=== PATIENT | female | born 1975 | race Two or more races ===

== ENCOUNTER 2016-06-24 19:20 | Inpatient (IN) | payer OTHER ==
[~2016-06-24] VITALS: Ht 160 cm; Wt 74.7 kg
[2016-06-24] MEDS ORDERED: SODIUM CHLORIDE 0.9% 1,000 ML IVB ONE (20:14)
[2016-06-24 20:35] LABS: Basophils # (auto) 0 uL; Basophils % (auto) 0.3 % (0.0-2.0); Eosinophils # (auto) 0 uL; Eosinophils % (auto) 0.3 % (0.0-7.0); Hematocrit 43.5 % (36.0-46.0); Lymphocytes # (auto) 1.2 uL; Lymphocytes % (auto) 12.9 % (10.0-50.0); Mean Corpuscular Hemoglobin 30.1 pg (28.0-32.0); Mean Corpuscular Hgb Conc. 32.2 g/dL (32.0-36.0); Mean Corpuscular Volume 93.6 fL (80.0-100.0); Mean Platelet Volume 7.7 fL (7.4-10.4); Monocytes # (auto) 0.6 uL; Monocytes % (auto) 5.8 % (0.0-12.0); Neutrophils # (auto) 7.7 uL; Neutrophils % (auto) 80.7 % (37.0-80.0); Platelet Count (auto) 289 10^3/uL (140-450); Red Cell Distribution Width 12.8 % (11.6-16.0); White Blood Cell 9.5 10^3/uL (4.4-10.8)
[2016-06-24 20:57] LABS: Albumin 3.7 g/dL (3.4-5.0); BUN/Creatinine Ratio 11.5; Calcium 8.6 mg/dL (8.5-10.1)
[2016-06-24 21:00] LABS: Bilirubin, Total 0.8 mg/dL (0.2-1.0); Total Protein 7.2 g/dL (6.4-8.2)
[2016-06-24] MEDS: SODIUM CHLORIDE 0.9% 1,000 ML IV SCH (21:41)
[2016-06-24] MEDS: METOPROLOL TARTRATE 25 MG TAB PO SCH (22:17)
[2016-06-24 22:27] LABS: Temperature: 22.5 C (20.0-25.0)
[2016-06-24] MEDS ORDERED: METOPROLOL TARTRATE 1MG/1ML-5ML VIAL IV ONE (22:45)
[2016-06-24 23:00] VITALS: BP 117/76
[2016-06-25] VITALS (7 sets, daily range): BP systolic 114–128; BP diastolic 70–79
[2016-06-25] MEDS ORDERED: METOPROLOL TARTRATE 1MG/1ML-5ML VIAL IV PRN (00:30)
[2016-06-25] MEDS ORDERED: FAM20T PO (05:46)
[2016-06-25 06:17] LABS: Basophils # (auto) 0 uL; Basophils % (auto) 0.3 % (0.0-2.0); Eosinophils # (auto) 0 uL; Eosinophils % (auto) 0.4 % (0.0-7.0); Hematocrit 40.6 % (36.0-46.0); Hemoglobin 13.2 g/dL (12.2-16.2); Lymphocytes # (auto) 1.9 uL; Lymphocytes % (auto) 21.4 % (10.0-50.0); Mean Corpuscular Hemoglobin 30.4 pg (28.0-32.0); Mean Corpuscular Hgb Conc. 32.4 g/dL (32.0-36.0); Mean Corpuscular Volume 93.6 fL (80.0-100.0); Mean Platelet Volume 7.8 fL (7.4-10.4); Monocytes # (auto) 0.6 uL; Monocytes % (auto) 7.1 % (0.0-12.0); Neutrophils # (auto) 6.2 uL; Neutrophils % (auto) 70.8 % (37.0-80.0); Platelet Count (auto) 260 10^3/uL (140-450); Red Cell Distribution Width 12.6 % (11.6-16.0); White Blood Cell 8.8 10^3/uL (4.4-10.8)
[2016-06-25 06:35] LABS: Albumin 3.3 g/dL (3.4-5.0); BUN/Creatinine Ratio 10.3; Calcium 8.4 mg/dL (8.5-10.1)
[2016-06-25 06:40] LABS: Bilirubin, Total 0.6 mg/dL (0.2-1.0); Total Protein 6.4 g/dL (6.4-8.2)
[2016-06-25] MEDS: ASPirin 81 mg TAB PO SCH (09:58)
[2016-06-25] MEDS: METOPROLOL TARTRATE 25 MG TAB PO SCH ×2 (09:59→22:28)
[2016-06-25] MEDS: SODIUM CHLORIDE 0.9% 1,000 ML IV SCH ×2 (10:11→22:28)
[2016-06-25] MEDS ORDERED: IOHEXOL 350 MG/ML 100ML IJ ONE (14:13)
[2016-06-25] MEDS ORDERED: METOPROLOL TARTRATE 1MG/1ML-5ML VIAL IV ONE (14:16)
[2016-06-26 04:49] VITALS: BP 122/70
[2016-06-26 09:00] VITALS: BP 121/74
[2016-06-26] MEDS: ASPirin 81 mg TAB PO SCH (10:05)
[2016-06-26] MEDS: METOPROLOL TARTRATE 25 MG TAB PO SCH (10:06)
[2016-06-26 13:00] VITALS: BP 162/91
[2016-06-26 17:18] VITALS: BP 99/87
[2016-06-26 20:00] VITALS: BP 103/56
[2016-06-26 21:39] VITALS: BP 103/56
[2016-06-27 04:44] VITALS: BP 113/57
[2016-06-27 09:00] VITALS: BP 106/67
[2016-06-27] MEDS: ASPirin 81 mg TAB PO SCH (10:26)
[2016-06-27 13:00] VITALS: BP 140/69
[2016-06-27 17:00] VITALS: BP 102/67
[2016-06-27] MEDS: SODIUM CHLORIDE 0.9% 1,000 ML IV SCH (17:29)
[2016-06-27 20:00] VITALS: BP 113/55
[2016-06-27 21:39] VITALS: BP 113/55
[2016-06-28] VITALS (7 sets, daily range): BP systolic 105–136; BP diastolic 46–83
[2016-06-28] MEDS: SODIUM CHLORIDE 0.9% 1,000 ML IV SCH ×2 (04:04→14:00)
[2016-06-28 09:45] LABS: INR 1.08 (0.9-1.15); Partial Thromboplastin Time 27.5 sec (22.64-33.71); Prothrombin Time 11.1 sec (9.37-12.3)
[2016-06-28] MEDS: ASPirin 81 mg TAB PO SCH (10:00)
[2016-06-28] MEDS: LORATADINE 10 MG TAB PO SCH (10:00)
[2016-06-28] MEDS ORDERED: LORazepam 0.5 MG TAB ONE (17:46)
[2016-06-28] MEDS: LORazepam 0.5 MG TAB PO PRN ×2 (17:56→22:41)
[2016-06-29 05:00] VITALS: BP 114/67
[2016-06-29 09:00] VITALS: BP 114/66
[2016-06-29] MEDS: LORATADINE 10 MG TAB PO SCH (10:00)
[2016-06-29] MEDS: ASPirin 81 mg TAB PO SCH (10:38)
[2016-06-29 13:00] VITALS: BP 122/83
[2016-06-29 17:00] VITALS: BP 120/76
[2016-06-29 20:00] VITALS: BP 117/77
[2016-06-29] MEDS: LORazepam 0.5 MG TAB PO PRN (21:37)
[2016-06-29 21:55] VITALS: BP 117/77
[2016-06-30] VITALS (7 sets, daily range): BP systolic 99–115; BP diastolic 63–86
[2016-06-30] MEDS: ASPirin 81 mg TAB PO SCH (10:21)
[2016-07-01] VITALS (8 sets, daily range): BP systolic 96–123; BP diastolic 58–83
[2016-07-01] MEDS: ASPirin 81 mg TAB PO SCH (10:06)
[2016-07-01] MEDS: ESMOLOL HCL (10MG/ML) 10 ML VIAL IV SCH (22:00)
[2016-07-02] VITALS (44 sets, daily range): BP systolic 98–135; BP diastolic 54–83
[2016-07-02] MEDS: ESMOLOL HCL (10MG/ML) 10 ML VIAL IV SCH ×2 (02:00→06:00)
[2016-07-02 08:26] LABS: Basophils # (auto) 0 uL; Basophils % (auto) 0.3 % (0.0-2.0); Eosinophils # (auto) 0.1 uL; Eosinophils % (auto) 0.9 % (0.0-7.0); Hemoglobin 13.2 g/dL (12.2-16.2); Lymphocytes # (auto) 1.8 uL; Lymphocytes % (auto) 24.3 % (10.0-50.0); Mean Corpuscular Hemoglobin 30.2 pg (28.0-32.0); Mean Corpuscular Hgb Conc. 32.2 g/dL (32.0-36.0); Mean Corpuscular Volume 93.8 fL (80.0-100.0); Monocytes # (auto) 0.5 uL; Monocytes % (auto) 6.9 % (0.0-12.0); Neutrophils # (auto) 5.1 uL; Neutrophils % (auto) 67.6 % (37.0-80.0); Platelet Count (auto) 333 10^3/uL (140-450); Red Cell Distribution Width 12.6 % (11.6-16.0); White Blood Cell 7.5 10^3/uL (4.4-10.8)
[2016-07-02] MEDS ORDERED: LORazepam 2MG/ML-1ML VIAL IV PRN (08:45)
[2016-07-02 08:52] LABS: Albumin 3.4 g/dL (3.4-5.0); BUN/Creatinine Ratio 11.1; Bilirubin, Total 0.5 mg/dL (0.2-1.0); Calcium 8.7 mg/dL (8.5-10.1); Magnesium 2.4 mg/dL (1.6-2.6); Phosphorus 3.4 mg/dL (2.5-4.90); Potassium 3.9 mmol/L (3.5-5.1); Total Protein 6.6 g/dL (6.4-8.2)
[2016-07-02] MEDS: ASPirin 81 mg TAB PO SCH (09:53)
[2016-07-02] MEDS ORDERED: SALINE 0.65 % NASAL SPRAY 45ML BOTTLE ONE (11:00)
[2016-07-02] MEDS ORDERED: ISOPROTERENOL IV SCH (13:15)
[2016-07-02] MEDS ORDERED: ISOPROTERENOL HCL INJECTION 1 MG in D5W 5% 250 ML IV SCH (13:22)
[2016-07-02] MEDS ORDERED: LIDOCAINE 2%HCL (LOCAL ANESTH.) INJ 20ML MDV ONE (13:39)
[2016-07-02] MEDS ORDERED: fentaNYL CITRATE 100 MCG/2 ML VL ONE (13:52)
[2016-07-02] MEDS ORDERED: MIDAZOLAM HCL 1MG/1ML-2 ML VIAL ONE (13:52)
[2016-07-02] MEDS ORDERED: ACETAMINOPHEN 500 MG TAB PO PRN (18:00)
[2016-07-02] MEDS: SALINE 0.65 % NASAL SPRAY 45ML BOTTLE SCH ×2 (18:02→22:00)
[2016-07-02] MEDS ORDERED: HYDROcodone-ACET 5/325MG TAB PO PRN (18:30)
[2016-07-02] MEDS ORDERED: SOTALOL HCL 80 MG TAB PO SCH (22:00)
[2016-07-03] VITALS (47 sets, daily range): BP systolic 91–113; BP diastolic 46–72
[2016-07-03] MEDS: SALINE 0.65 % NASAL SPRAY 45ML BOTTLE SCH ×4 (05:39→21:47)
[2016-07-03] MEDS: SOTALOL HCL 80 MG TAB PO SCH ×2 (06:47→18:52)
[2016-07-03] MEDS: ASPirin 81 mg TAB PO SCH ×2 (10:06→21:48)
[2016-07-04] VITALS (7 sets, daily range): BP systolic 98–139; BP diastolic 59–77
[2016-07-04] MEDS: SALINE 0.65 % NASAL SPRAY 45ML BOTTLE SCH ×4 (06:00→21:12)
[2016-07-04 06:38] LABS: BUN/Creatinine Ratio 16.7; Calcium 8.3 mg/dL (8.5-10.1); Magnesium 2.3 mg/dL (1.6-2.6); Potassium 3.6 mmol/L (3.5-5.1)
[2016-07-04] MEDS: SOTALOL HCL 80 MG TAB PO SCH ×2 (07:42→18:55)
[2016-07-04] MEDS: ASPirin 81 mg TAB PO SCH ×2 (09:30→21:12)
[2016-07-04] MEDS ORDERED: POTASSIUM CHLORIDE 8 MEQ TAB PO ONE (11:45)
[2016-07-05] VITALS (7 sets, daily range): BP systolic 95–111; BP diastolic 61–70
[2016-07-05] MEDS: SALINE 0.65 % NASAL SPRAY 45ML BOTTLE SCH ×4 (06:00→21:34)
[2016-07-05] MEDS: SOTALOL HCL 80 MG TAB PO SCH ×2 (06:15→18:54)
[2016-07-05 06:28] LABS: Potassium 3.3 mmol/L (3.5-5.1)
[2016-07-05 06:31] LABS: Magnesium 2.3 mg/dL (1.6-2.6)
[2016-07-05] MEDS ORDERED: POTASSIUM CHL 20 Meq TABLET PO ONE (08:45)
[2016-07-05] MEDS ORDERED: SOTA80TA20 PO (09:06)
[2016-07-05] MEDS ORDERED: ASPI81CH43 PO (09:06)
[2016-07-05] MEDS: ASPirin 81 mg TAB PO SCH ×2 (09:53→21:35)
[2016-07-06 00:43] VITALS: BP 103/53
[2016-07-06 05:00] VITALS: BP 107/63
[2016-07-06] MEDS: SALINE 0.65 % NASAL SPRAY 45ML BOTTLE SCH ×2 (06:00→12:00)
[2016-07-06] MEDS: SOTALOL HCL 80 MG TAB PO SCH (06:23)
[2016-07-06 07:30] VITALS: BP 96/62
[2016-07-06 08:00] VITALS: BP 96/62
[2016-07-06] MEDS: ASPirin 81 mg TAB PO SCH (09:29)
[2016-07-06 11:53] VITALS: BP 91/52
== END 2016-07-06 15:20 | disposition home or self-care (01) | DRG 175 ==
LOC: ER 19:29 → TELE-CENTR 19:30 → ICU WEST 07-01 23:03 → TELE-WESTW 07-03 13:35
PROVIDERS: ADMIT Family Medicine; ATTEND Internal Medicine
PROC: 4A023FZ Measurement of Cardiac Rhythm, Percutaneous Approach (ICD-10-PCS; principal; 2016-07-03)
PROC: 02583ZZ Destruction of Conduction Mechanism, Percutaneous Approach (ICD-10-PCS; 2016-07-03)
PROC: 4A0234Z Measurement of Cardiac Electrical Activity, Percutaneous Approach (ICD-10-PCS; 2016-07-03)
PROC: 02K83ZZ Map Conduction Mechanism, Percutaneous Approach (ICD-10-PCS; 2016-07-03)
DX: I47.2 Ventricular tachycardia (principal); E23.0 Hypopituitarism; J06.9 Acute upper respiratory infection, unspecified; I44.7 Left bundle-branch block, unspecified; F40.240 Claustrophobia; Z82.49 Family history of ischemic heart disease and other diseases of the circulatory system; Z83.3 Family history of diabetes mellitus; Z90.49 Acquired absence of other specified parts of digestive tract
CPT/HCPCS: 36415; 51702; 70450; 71010; 75571; 75574; 80048; 80053; 80061; 82533; 82607; 82746; 82962; 83735; 84100; 84132; 84443; 84484; 84702; 85025; 85379; 85610; 85652; 85730; 87081; 93005; 93306; 93886; 95819; 96360; G0434; J2250; J7060

== ENCOUNTER 2016-07-31 15:51 | Inpatient (IN) | payer OTHER ==
[~2016-07-31] VITALS: Ht 160 cm; Wt 78.5 kg
[~2016-07-31 15:51] MED LIST: ASPI81CH43 PO; FAM20T PO; SOTA80TA20 PO
[2016-07-31] MEDS ORDERED: SODIUM CHLORIDE 0.9% 1,000 ML IV ONE (16:12)
[2016-07-31 16:32] LABS: Basophils # (auto) 0 uL; Basophils % (auto) 0.5 % (0.0-2.0); Eosinophils # (auto) 0 uL; Eosinophils % (auto) 0.6 % (0.0-7.0); Hematocrit 41.9 % (36.0-46.0); Hemoglobin 14.2 g/dL (12.2-16.2); Lymphocytes # (auto) 1.9 uL; Lymphocytes % (auto) 26.5 % (10.0-50.0); Mean Corpuscular Hemoglobin 31.5 pg (28.0-32.0); Mean Corpuscular Hgb Conc. 33.8 g/dL (32.0-36.0); Mean Platelet Volume 7.4 fL (7.4-10.4); Monocytes # (auto) 0.5 uL; Monocytes % (auto) 7.3 % (0.0-12.0); Neutrophils # (auto) 4.6 uL; Neutrophils % (auto) 65.1 % (37.0-80.0); Platelet Count (auto) 294 10^3/uL (140-450); Red Cell Distribution Width 12.8 % (11.6-16.0)
[2016-07-31 16:57] LABS: INR 1.09 (0.9-1.15); Prothrombin Time 11.2 sec (9.37-12.3)
[2016-07-31 17:18] LABS: Albumin 3.8 g/dL (3.4-5.0); Anion Gap 11 (5-15); Aspartate Aminotransferase 21 U/L (15-37); BUN/Creatinine Ratio 10.3; Blood Urea Nitrogen 7 mg/dL (7-18); Calcium 8.5 mg/dL (8.5-10.1); Carbon Dioxide 24 mmol/L (21-32); Chloride 108 mmol/L (98-107); GFR African American 121 mL/min; GFR Non-African American 100 mL/min; Glucose 109 mg/dL (74-106); Magnesium 2.3 mg/dL (1.6-2.6); Potassium 3.8 mmol/L (3.5-5.1); Sodium 143 mmol/L (136-145)
[2016-07-31 17:23] LABS: Alkaline Phosphatase 78 U/L (45-117); B-Type Natriuretic Peptide 13.07 pg/mL (0-100); Bilirubin, Total 0.6 mg/dL (0.2-1.0); Total Protein 7.3 g/dL (6.4-8.2)
[2016-07-31 17:44] LABS: Temperature: 23.7 C (20.0-25.0)
[2016-07-31] MEDS: ATENOLOL 50 MG TAB PO SCH (21:54)
[2016-07-31] MEDS ORDERED: MORPHINE SULF INJ 2 MG/ML SYRINGE 1ML IV PRN (22:00)
[2016-07-31] MEDS ORDERED: NITROGLYCERIN 0.4 MG SL TAB SL PRN (22:00)
[2016-07-31 22:06] LABS: Urine Color Yellow (Yellow); Urine Glucose Normal (Normal); Urine Ketone 2+ (Negative); Urine Nitrite Negative (Negative)
[2016-07-31 22:07] LABS: Urine Bilirubin Negative (Negative); Urine Blood TRACE /uL (Negative); Urine Urobilinogen Normal (Negative)
[2016-07-31 22:08] LABS: Urine RBC 1 /hpf (0 - 4); Urine Squamous Epithelial Cell FEW /hpf (<5)
[2016-07-31] MEDS: SODIUM CHLORIDE 0.9% 1,000 ML IV SCH (22:14)
[2016-07-31 22:30] VITALS: BP 115/69
[2016-07-31 23:28] VITALS: BP 115/69
[2016-08-01 05:00] VITALS: BP 103/66
[2016-08-01] MEDS: SODIUM CHLORIDE 0.9% 1,000 ML IV SCH (05:22)
[2016-08-01 06:25] LABS: Basophils # (auto) 0 uL; Basophils % (auto) 0.5 % (0.0-2.0); Eosinophils # (auto) 0 uL; Eosinophils % (auto) 0.8 % (0.0-7.0); Hematocrit 37.5 % (36.0-46.0); Hemoglobin 12.9 g/dL (12.2-16.2); Lymphocytes # (auto) 2.2 uL; Lymphocytes % (auto) 35.1 % (10.0-50.0); Mean Corpuscular Hemoglobin 31.5 pg (28.0-32.0); Mean Corpuscular Hgb Conc. 34.4 g/dL (32.0-36.0); Mean Corpuscular Volume 91.5 fL (80.0-100.0); Mean Platelet Volume 7.6 fL (7.4-10.4); Monocytes # (auto) 0.5 uL; Monocytes % (auto) 7.9 % (0.0-12.0); Neutrophils # (auto) 3.5 uL; Neutrophils % (auto) 55.7 % (37.0-80.0); Platelet Count (auto) 254 10^3/uL (140-450); Red Cell Distribution Width 12.9 % (11.6-16.0); White Blood Cell 6.4 10^3/uL (4.4-10.8)
[2016-08-01 07:14] LABS: Albumin 3.4 g/dL (3.4-5.0); Alkaline Phosphatase 67 U/L (45-117); Anion Gap 10 (5-15); Aspartate Aminotransferase 21 U/L (15-37); BUN/Creatinine Ratio 10.3; Bilirubin, Total 0.7 mg/dL (0.2-1.0); Blood Urea Nitrogen 6 mg/dL (7-18); Calcium 8.5 mg/dL (8.5-10.1); Carbon Dioxide 24 mmol/L (21-32); Chloride 112 mmol/L (98-107); Cholesterol 133 mg/dL (<200); GFR African American 146 mL/min; GFR Non-African American 121 mL/min; Glucose 90 mg/dL (74-106); HDL Cholesterol 41 mg/dL (40-59); LDL Cholesterol 86 mg/dL (<100); Potassium 3.7 mmol/L (3.5-5.1); Sodium 146 mmol/L (136-145); Total Protein 6.3 g/dL (6.4-8.2)
[2016-08-01 07:29] LABS: Triglycerides 113 mg/dL (<150)
[2016-08-01 08:47] VITALS: BP 105/67
[2016-08-01] MEDS: ASPirin 81 mg TAB PO SCH (09:57)
[2016-08-01] MEDS: ATENOLOL 50 MG TAB PO SCH (09:57)
[2016-08-01] MEDS ORDERED: traMADol HCL 50 MG TAB PO ONE (11:30)
[2016-08-01 13:00] VITALS: BP 121/73
[2016-08-01] MEDS ORDERED: traMADol HCL 50 MG TAB PO PRN (15:45)
[2016-08-01 17:00] VITALS: BP 127/81
[2016-08-01 22:00] VITALS: BP 113/69
[2016-08-01] MEDS ORDERED: ATENOLOL 50 MG TAB PO SCH (22:00)
[2016-08-02 05:34] VITALS: BP 108/72
[2016-08-02 08:57] VITALS: BP 118/77
[2016-08-02] MEDS: ASPirin 81 mg TAB PO SCH (09:31)
[2016-08-02 12:39] VITALS: BP 103/72
[2016-08-02 16:51] VITALS: BP 103/72
[2016-08-02 17:00] VITALS: BP 109/79
== END 2016-08-02 17:38 | disposition home or self-care (01) | DRG 198 ==
LOC: ER 15:51 → TELE 15:52 → TELE-WESTW 22:30
PROVIDERS: ADMIT Family Medicine; ATTEND Internal Medicine
DX: R07.9 Chest pain, unspecified (principal); I25.2 Old myocardial infarction; R55 Syncope and collapse; R53.1 Weakness; Z79.82 Long term (current) use of aspirin; Z88.0 Allergy status to penicillin; Z90.49 Acquired absence of other specified parts of digestive tract; Z68.30 Body mass index [BMI] 30.0-30.9, adult
CPT/HCPCS: 36415; 71010; 80053; 80061; 81001; 81025; 83735; 83880; 84443; 84484; 85025; 85610; 85730; 87081; 93005

== ENCOUNTER 2016-09-18 17:20 | Emergency (ER) | payer MEDICAID, OTHER ==
[~2016-09-18] VITALS: Ht 160 cm; Wt 8.2 kg
[~2016-09-18 17:20] MED LIST changes: -FAM20T PO; -SOTA80TA20 PO
[2016-09-18 17:50] LABS: Urine Bilirubin Negative (Negative); Urine Blood Negative /uL (Negative); Urine Color Colorless (Yellow); Urine Glucose Normal (Normal); Urine Ketone TRACE (Negative); Urine Nitrite Negative (Negative); Urine RBC <1 /hpf (0 - 4); Urine Squamous Epithelial Cell FEW /hpf (<5); Urine Urobilinogen Normal (Negative)
[2016-09-18 18:24] LABS: Basophils # (auto) 0 uL; Basophils % (auto) 0.4 % (0.0-2.0); Eosinophils # (auto) 0 uL; Eosinophils % (auto) 0.1 % (0.0-7.0); Hemoglobin 14.4 g/dL (12.2-16.2); Lymphocytes % (auto) 21.2 % (10.0-50.0); Mean Corpuscular Hemoglobin 31.5 pg (28.0-32.0); Mean Corpuscular Hgb Conc. 33.5 g/dL (32.0-36.0); Mean Corpuscular Volume 93.8 fL (80.0-100.0); Mean Platelet Volume 7.4 fL (7.4-10.4); Monocytes # (auto) 0.8 uL; Neutrophils # (auto) 6.6 uL; Neutrophils % (auto) 70.3 % (37.0-80.0); Platelet Count (auto) 313 10^3/uL (140-450); Red Cell Distribution Width 13.3 % (11.6-16.0); White Blood Cell 9.4 10^3/uL (4.4-10.8)
[2016-09-18 18:44] LABS: Albumin 3.7 g/dL (3.4-5.0); BUN/Creatinine Ratio 8.1; Calcium 8.6 mg/dL (8.5-10.1); Potassium 3.7 mmol/L (3.5-5.1)
[2016-09-18 18:47] LABS: Bilirubin, Total 0.6 mg/dL (0.2-1.0); Total Protein 7.1 g/dL (6.4-8.2)
[2016-09-18 19:45] VITALS: BP 132/72
== END 2016-09-18 20:42 | disposition home or self-care (01) ==
LOC: ER 17:20
DX: R51 Headache (principal)
CPT/HCPCS: 36415; 70450; 80053; 81001; 85025

== ENCOUNTER 2024-01-08 20:45 | Emergency (ER) | payer MEDICAID ==
[~2024-01-08] VITALS: Ht 162.6 cm; Wt 134.0 kg
[2024-01-08 21:15] VITALS: BP 144/69; PULSE 102; RESP 20; O2SAT 99
[2024-01-08 21:18] LABS: Basophils # (auto) 0 10 ^3/uL (0-0.2); Basophils % (auto) 0.3 % (0.0-2.0); Eosinophils # (auto) 0 10 ^3/uL (0-0.8); Eosinophils % (auto) 0.7 % (0.0-7.0); Hematocrit 37.8 % (36.0-46.0); Hemoglobin 12.6 g/dL (12.2-16.2); Lymphocytes # (auto) 0.3 10 ^3/uL (0.4-5.4); Mean Corpuscular Hemoglobin 32.1 pg (28.0-32.0); Mean Corpuscular Hgb Conc. 33.5 g/dL (32.0-36.0); Mean Corpuscular Volume 95.9 fL (80.0-100.0); Monocytes # (auto) 0 10 ^3/uL (0-1.3); Monocytes % (auto) 0.6 % (0.0-12.0); Neutrophils # (auto) 3.9 10 ^3/uL (1.6-8.6); Neutrophils % (auto) 90.4 % (37.0-80.0); Nucleated Red Blood Cells % 0.1 %; Platelet Count (auto) 190 10^3/uL (140-450); Red Blood Cells 3.94 10^6/uL (4.0-5.20); Red Cell Distribution Width 12.9 % (11.8-14.3); White Blood Cell 4.3 10^3/uL (4.4-10.8)
[2024-01-08] MEDS: ACETAMINOPHEN 500 MG TAB PO ONE (21:27)
[2024-01-08] MEDS: SODIUM CHLORIDE 0.9% 1,000 ML IV ONE (21:28)
[2024-01-08 21:37] LABS: Alanine Aminotransferase 11 U/L (7-40); Albumin 4.3 g/dL (3.2-4.8); Alkaline Phosphatase 101 U/L (46-116); Anion Gap 5 (5-15); Aspartate Aminotransferase 15 U/L (13-40); BUN/Creatinine Ratio 21.4 (10.0-20.0); Bilirubin, Total 0.8 mg/dL (0.2-1.0); Blood Urea Nitrogen 15 mg/dL (9-23); Calcium 9.6 mg/dL (8.7-10.4); Carbon Dioxide 28 mmol/L (20-30); Chloride 107 mmol/L (98-107); Glucose 102 mg/dL (74-106); Potassium 3.5 mmol/L (3.5-5.1); Sodium 140 mmol/L (136-145); Total Protein 6.7 g/dL (5.7-8.2)
== END 2024-01-08 23:21 | disposition home or self-care (01) ==
LOC: ER 20:45 → EDBD 20:45 → ER 23:15
DX: N39.0 Urinary tract infection, site not specified (principal); E66.01 Morbid (severe) obesity due to excess calories; Z68.43 Body mass index [BMI] 50.0-59.9, adult; Z98.890 Other specified postprocedural states; Z88.0 Allergy status to penicillin; Z79.899 Other long term (current) drug therapy
CPT/HCPCS: 36415; 80053; 85025; 93005; 96360; 99284; J7030